=== PATIENT | male | born 1970 | race Caucasian/White ===

== ENCOUNTER 2017-07-02 21:18 | Emergency (ER) | payer OTHER ==
[~2017-07-02] VITALS: Ht 170.2 cm; Wt 86.2 kg
--- NOTE | 2017-07-02 21:58 | NUR ---
Dr. Armendariz at bedside for MSE
[2017-07-02] MEDS ORDERED: ONDANSETRON IV *ER 4 MG/2 ML VIAL IV ONE (22:00)
[2017-07-02] MEDS ORDERED: MORPHINE SULFATE 4 MG/1 ML DISP.SYRIN IV ONE (22:00)
--- NOTE | 2017-07-02 22:26 | NUR ---
IV established. Labs drawn and sent. Pt medicated for pain, will monitor for effects of medication. Pt to CT via is[facility]
[2017-07-02] MEDS ORDERED: ONDANSETRON 4 MG/2 ML VIAL ONE (22:33)
[2017-07-02] MEDS ORDERED: MORPHINE SULFATE 10 MG/1 ML DISP.SYRIN ONE (22:34)
[2017-07-02 22:40] LABS: BASOPHILS # (AUTO) 0.4 K/uL (0.0-8.0); BASOPHILS % (AUTO) 3.9 % (0.0-2.0); EOSINOPHILS # (AUTO) 0.2 K/uL (0.0-0.7); EOSINOPHILS % (AUTO) 2.1 % (0.0-7.0); HEMATOCRIT 45.2 % (40-50); HEMOGLOBIN 15.2 G/DL (14.0-18.0); LYMPHOCYTES % (AUTO) 43.1 % (20.5-51.5); MEAN CORPUSCULAR HEMOGLOBIN 30.6 UUG (27.0-31.0); MEAN CORPUSCULAR HGB CONC 34 g/dL (32.0-37.0); MEAN CORPUSCULAR VOLUME 91.2 FL (82.0-92.0); MONOCYTES # (AUTO) 0.9 K/UL (0.1-1.30); NEUTROPHILS # (AUTO) 3.8 K/UL (1.8-8.9); NEUTROPHILS % (AUTO) 40.9 % (38.5-71.5); PLATELET COUNT (AUTO) 529 K/UL (150-450); RED BLOOD CELL COUNT(AUTO) 4.96 MIL/UL (4.7-6.1); WHITE BLOOD COUNT (AUTO) 9.3 K/UL (4.0-11.2)
[2017-07-02 22:59] LABS: CREATININE 1.1 mg/dL (0.6-1.3); POTASSIUM 3.4 mmol/L (3.5-5.1)
[2017-07-02] MEDS ORDERED: POTASSIUM CHLORIDE 10 MEQ CAPSULE.SA PO ONE (23:15)
--- NOTE | 2017-07-02 23:55 | NUR ---
2320 - Returned to unit after taking an admission to the floor and noticed pt not in his room. Pt's clothes were gone, hospital gown on bed, pt not in bathroom, not in wr and not in another department. Pt eloped with IV. 232 - Dr. Armendariz, Daniela (charge nurse), Alise (housekeeping manager) and security all notified. 2330 - Pt left his cell phone when he eloped. Pt's friend arrived to collect the cell phone. Friend was instructed to tell the pt when he to returns to the ER to have his IV taken out he would received his cell phone. He was also informed that per hospital policy the police will be notified. 2340 - Called [employer], spoke with rotary envelope machine operator [phone] to report the pt eloping with an IV in after receiving narcotics. 2355 - Pt returned to collect his cell phone. Pt had dc'd his IV prior to returning but brought it with him wrapped in a paper towel. Catheter was intact, no problems noted to IV site. Dr. Armendariz notified of this.
== END 2017-07-02 23:55 | disposition left against medical advice (07) ==
LOC: ER 21:19
DX: G89.29 Other chronic pain (principal); E87.6 Hypokalemia
CPT/HCPCS: 36415; 72131; 80048; 85025; 96374; 96375; 99285; A4663; J2270; J2405